=== PATIENT | female | born 1985 | race Caucasian/White ===

== ENCOUNTER 2019-09-18 00:04 | Emergency (ER) | payer OTHER ==
[~2019-09-18] VITALS: Ht 170.2 cm; Wt 73.9 kg
--- NOTE | 2019-09-18 00:26 | NUR ---
PT PRESENTED TO THE ER WITH A C/O MID STERNAL CP, EPISODE OF STREAKS OF BLOOD IN HER STOOL, AND PT APPEARS TO BE ANXIOUS. PT AMBULATED TO THE BATHROOM WITH A STEADY GAIT, BUT WAS UNABLE TO GIVE A URINE SAMPLE AT THIS TIME. PT AMBULATED TO ER 2 WITH A STEADY GAIT AND WAS CONNECTED TO THE MONITOR AND CONTINUOUS PULSE OX.
--- NOTE | 2019-09-18 00:32 | NUR ---
DR FARRAR IS AT THE BEDSIDE.
[2019-09-18] MEDS ORDERED: LORAZEPAM 1 MG TABLET ONE (00:46)
[2019-09-18 00:54] LABS: BASOPHILS # (AUTO) 0.1 /CMM (0.0-0.2); BASOPHILS % (AUTO) 1.4 % (0.0-2.0); EOSINOPHILS % (AUTO) 1.4 % (0.0-6.0); HEMATOCRIT 34 % (33-45); HEMOGLOBIN 11.6 g/dL (11.5-14.8); LYMPHOCYTES # (AUTO) 2.2 /CMM (0.8-4.8); LYMPHOCYTES % (AUTO) 29.5 % (20.0-44.0); MEAN CORPUSCULAR HGB CONC 34 g/dl (31.0-36.0); MEAN CORPUSCULAR VOLUME 90 fL (82-100); MONOCYTES # (AUTO) 0.5 /CMM (0.1-1.30); MONOCYTES % (AUTO) 6.6 % (2.0-12.0); NEUTROPHILS # (AUTO) 4.5 /CMM (1.8-8.9); NEUTROPHILS % (AUTO) 61.1 % (43.0-81.0); PLATELET COUNT (AUTO) 233 /CMM (150-450); RED BLOOD CELL COUNT(AUTO) 3.78 MIL/uL (4.0-5.2); WHITE BLOOD COUNT (AUTO) 7.4 K/uL (4.3-11.0)
[2019-09-18 01:00] LABS: CALCIUM, SERUM 8.9 mg/dL (8.5-10.1); CREATININE 0.8 mg/dL (0.6-1.3); POTASSIUM 3.9 mmol/L (3.5-5.1)
[2019-09-18] MEDS ORDERED: LORAZEPAM 1 MG TABLET PO ONE (01:00)
[2019-09-18] MEDS ORDERED: MAG HYDROX/AL HYDROX/SIMETH 30 ML UDC ONE (01:29)
[2019-09-18] MEDS ORDERED: LIDOCAINE VISCOUS 2% UD 15 ML UDC ONE (01:29)
[2019-09-18] MEDS ORDERED: MAG HYDROX/AL HYDROX/SIMETH 30 ML UDC PO ONE (01:30)
[2019-09-18] MEDS ORDERED: LIDOCAINE VISCOUS 2% UD 15 ML UDC MM ONE (01:30)
--- NOTE | 2019-09-18 01:53 | NUR ---
URINE SAMPLE OBTAINED AND SENT TO LAB.
[2019-09-18 01:56] LABS: APPEARANCE,URINE Clear (CLEAR); BILIRUBIN,URINE Negative (NEGATIVE); BLOOD, URINE Negative Ery/uL (NEGATIVE); COLOR,URINE Yellow (YELLOW); KETONES,URINE Negative (NEGATIVE); LEUKOCYTE ESTERASE ,URINE Negative (NEGATIVE); NITRITE, URINE Negative (NEGATIVE); PROTEIN,URINE Negative (NEGATIVE); UGLUCOSE Negative (NEGATIVE); UROBILINOGEN,URINE 0.2 EU/dL (0.2)
--- NOTE | 2019-09-18 02:05 | NUR ---
Patient discharged to home in stable condition. Written and verbal after care instructions given. Patient verbalizes understanding of instruction AND RX. PT AMBULATED OUT WITH A STEADY GAIT. PT HAD 80Z WATER AND TOLERATED PO WELL. VSS
[2019-09-18 02:49] VITALS: BP 119/85
== END 2019-09-18 02:05 | disposition home or self-care (01) ==
LOC: ER 00:06
DX: F41.9 Anxiety disorder, unspecified (principal); B96.81 Helicobacter pylori [H. pylori] as the cause of diseases classified elsewhere; K29.70 Gastritis, unspecified, without bleeding
CPT/HCPCS: 36415; 80048-TC; 81000-TC; 85025-TC

== ENCOUNTER 2020-01-10 00:37 | Emergency (ER) | payer OTHER ==
[~2020-01-10] VITALS: Ht 170.2 cm; Wt 73.9 kg
--- NOTE | 2020-01-10 00:47 | NUR ---
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
--- NOTE | 2020-01-10 00:50 | NUR ---
PT TINY COYLE
[2020-01-10] MEDS ORDERED: LIDOCAINE VISCOUS 2% UD 15 ML UDC MM ONE (01:00)
[2020-01-10] MEDS ORDERED: FAMOTIDINE/PF INJ 20 MG/2 ML VIAL IV ONE ×2 (01:00→01:05)
[2020-01-10] MEDS ORDERED: ONDANSETRON HCL/PF 4 MG/2 ML VIAL IVP ONE (01:00)
[2020-01-10] MEDS ORDERED: IV NS 0.9% 1,000 ML BAG IV ONE (01:00)
[2020-01-10] MEDS ORDERED: MAG HYDROX/AL HYDROX/SIMETH 30 ML UDC PO ONE (01:00)
[2020-01-10] MEDS ORDERED: LIDOCAINE VISCOUS 2% UD 15 ML UDC ONE (01:04)
[2020-01-10] MEDS ORDERED: MAG HYDROX/AL HYDROX/SIMETH 30 ML UDC ONE (01:04)
[2020-01-10] MEDS ORDERED: ONDANSETRON HCL/PF 4 MG/2 ML VIAL ONE (01:05)
[2020-01-10 01:07] LABS: BASOPHILS # (AUTO) 0.2 /CMM (0.0-0.2); BASOPHILS % (AUTO) 3.8 % (0.0-2.0); EOSINOPHILS % (AUTO) 2.2 % (0.0-6.0); HEMATOCRIT 36 % (33-45); HEMOGLOBIN 12.1 g/dL (11.5-14.8); LYMPHOCYTES # (AUTO) 0.8 /CMM (0.8-4.8); LYMPHOCYTES % (AUTO) 12.3 % (20.0-44.0); MEAN CORPUSCULAR HGB CONC 34 g/dl (31.0-36.0); MEAN CORPUSCULAR VOLUME 90 fL (82-100); MONOCYTES # (AUTO) 0.2 /CMM (0.1-1.30); MONOCYTES % (AUTO) 2.9 % (2.0-12.0); NEUTROPHILS # (AUTO) 5.1 /CMM (1.8-8.9); NEUTROPHILS % (AUTO) 78.8 % (43.0-81.0); PLATELET COUNT (AUTO) 213 /CMM (150-450); RED BLOOD CELL COUNT(AUTO) 4.01 MIL/uL (4.0-5.2); WHITE BLOOD COUNT (AUTO) 6.5 K/uL (4.3-11.0)
[2020-01-10 01:14] LABS: CALCIUM, SERUM 8.7 mg/dL (8.5-10.1); CREATININE 0.7 mg/dL (0.6-1.3); POTASSIUM 3.7 mmol/L (3.5-5.1)
[2020-01-10 01:19] LABS: BILIRUBIN,DIRECT 0.1 mg/dL (0.0-0.2); BILIRUBIN,TOTAL 0.3 mg/dL (0.2-1.0); TOTAL PROTEIN, SERUM 7.4 g/dL (6.4-8.2)
[2020-01-10 01:21] LABS: APPEARANCE,URINE Clear (CLEAR); BILIRUBIN,URINE Negative (NEGATIVE); BLOOD, URINE Negative Ery/uL (NEGATIVE); COLOR,URINE Yellow (YELLOW); KETONES,URINE Negative (NEGATIVE); LEUKOCYTE ESTERASE ,URINE Negative (NEGATIVE); NITRITE, URINE Negative (NEGATIVE); PH,URINE 5.5 (5.0-8.0); PROTEIN,URINE Trace mg/dl (NEGATIVE); UGLUCOSE Negative (NEGATIVE); UROBILINOGEN,URINE 0.2 EU/dL (0.2)
[2020-01-10 01:40] LABS: BACTERIA,URINE Moderate /HPF (None Seen); MUCUS,URINE Few /LPF (None Seen); RBC,URINE 0-2 /HPF (0-2); SQUAMOUS EPITHELIAL CELL,UR Few /HPF (None Seen)
--- NOTE | 2020-01-10 02:48 | NUR ---
PT MEDICALLY STABLE FOR D/C. IV removed. Catheter intact and site benign. Pressure and 4x4 applied to site. No bleeding noted.Patient discharged to home in stable condition. Written and verbal after care instructions given. Patient verbalizes understanding of instruction.
[2020-01-10 02:53] VITALS: BP 110/68
== END 2020-01-10 02:54 | disposition home or self-care (01) ==
LOC: ER 00:38
DX: R10.13 Epigastric pain (principal); R11.2 Nausea with vomiting, unspecified
CPT/HCPCS: 36415; 80048; 80076; 81001; 83690; 84703; 85025; 87086; 96361; 96374; 96375; 99284; J2405; J3490; J7030; 81000-TC

== ENCOUNTER 2021-03-17 07:43 | Emergency (ER) | payer OTHER ==
[~2021-03-17] VITALS: Ht 170.2 cm; Wt 77.1 kg
--- NOTE | 2021-03-17 07:43 | NUR ---
PT BIB SELF C/O NAUSEA/VOMITING AND ABDOMINAL PAIN STARTED 4AM PT ADMITS TO DRINKING ALCOHOL LAST NIGHT. 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 WILL CONTINUE TO MONITOR.
--- NOTE | 2021-03-17 07:50 | NUR ---
PT IV LINE ESTABLISHED BLOOD DRAWN AND SENT TO LAB.
--- NOTE | 2021-03-17 07:55 | NUR ---
AT BEDSIDE FOR EVAL.
[2021-03-17] MEDS ORDERED: ONDANSETRON HCL/PF 4 MG/2 ML VIAL ONE ×2 (07:56→09:28)
[2021-03-17] MEDS ORDERED: PANTOPRAZOLE 40 MG VIAL ONE (07:56)
[2021-03-17] MEDS ORDERED: ONDANSETRON HCL/PF 4 MG/2 ML VIAL IVP ONE (08:00)
[2021-03-17] MEDS ORDERED: PANTOPRAZOLE 40 MG VIAL IV ONE (08:00)
[2021-03-17] MEDS ORDERED: IV NS 0.9% 1,000 ML BAG IV ONE (08:00)
[2021-03-17 08:13] LABS: CALCIUM, SERUM 9.1 mg/dL (8.5-10.1); CREATININE 0.8 mg/dL (0.6-1.3); POTASSIUM 4.1 mmol/L (3.5-5.1)
[2021-03-17 08:19] LABS: ALBUMIN 4.4 g/dL (3.4-5.0); BILIRUBIN,DIRECT 0.1 mg/dL (0.0-0.2); BILIRUBIN,TOTAL 0.5 mg/dL (0.2-1.0)
[2021-03-17 08:21] LABS: BASOPHILS # (AUTO) 0.1 K/uL (0.0-0.2); BASOPHILS % (AUTO) 0.8 % (0.0-2.0); EOSINOPHILS % (AUTO) 0.5 % (0.0-6.0); HEMATOCRIT 38 % (33-45); HEMOGLOBIN 12.6 g/dL (11.5-14.8); LYMPHOCYTES # (AUTO) 1.8 K/uL (0.8-4.8); LYMPHOCYTES % (AUTO) 19.1 % (20.0-44.0); MEAN CORPUSCULAR HGB CONC 34 g/dl (31.0-36.0); MEAN CORPUSCULAR VOLUME 89 fL (82-100); MONOCYTES # (AUTO) 0.3 K/uL (0.1-1.30); MONOCYTES % (AUTO) 2.7 % (2.0-12.0); NEUTROPHILS # (AUTO) 7.2 K/uL (1.8-8.9); NEUTROPHILS % (AUTO) 76.9 % (43.0-81.0); PLATELET COUNT (AUTO) 311 K/uL (150-450); RED BLOOD CELL COUNT(AUTO) 4.22 MIL/uL (4.0-5.2); WHITE BLOOD COUNT (AUTO) 9.3 K/uL (4.3-11.0)
[2021-03-17] MEDS ORDERED: HYDROMORPHONE 1 MG/1 ML DISP.SYRIN ONE (09:00)
[2021-03-17] MEDS ORDERED: HYDROMORPHONE 1 MG/1 ML DISP.SYRIN IV ONE (09:00)
[2021-03-17] MEDS ORDERED: PANT40TA2 PO (09:33)
[2021-03-17] MEDS ORDERED: ONDA4TAB5 PO (09:33)
--- NOTE | 2021-03-17 09:40 | NUR ---
IV removed. Catheter intact and site benign. Pressure and 4x4 applied to site. No bleeding noted. Patient discharged to home in stable condition. Written and verbal after care instructions given. Patient verbalizes understanding of instruction.
[2021-03-17 09:41] VITALS: BP 135/81
[2021-03-17] MEDS ORDERED: ONDANSETRON HCL/PF 4 MG/2 ML VIAL IV ONE (10:00)
== END 2021-03-17 10:08 | disposition home or self-care (01) ==
LOC: ER 07:45
DX: F10.10 Alcohol abuse, uncomplicated (principal); R10.13 Epigastric pain; R11.2 Nausea with vomiting, unspecified; Y90.2 Blood alcohol level of 40-59 mg/100 ml
CPT/HCPCS: 36415; 80048; 80076; 80320; 85025; 96361; 96374; 96375; 96376; 99284; C9113; J1170; J2405 ×2; J7030; G0480

== ENCOUNTER 2023-07-04 16:21 | Emergency (ER) | payer OTHER ==
[~2023-07-04] VITALS: Ht 167.6 cm; Wt 79.4 kg
[~2023-07-04 16:21] MED LIST: ONDA4TAB5 PO; PANT40TA2 PO
[2023-07-04 16:31] VITALS: BP 127/91; TEMP 98.6; O2SAT 100
[2023-07-04] MEDS ORDERED: [UNRECOGNIZED DRUG - CODE] MM (16:54)
[2023-07-04] MEDS ORDERED: AMOX500C2 PO (16:54)
[2023-07-04] MEDS ORDERED: DEXA4TAB PO (16:54)
[2023-07-04] MEDS ORDERED: IBUP-1955 PO (16:54)
[2023-07-04] MEDS ORDERED: ONDA4TAB5 PO (16:58)
[2023-07-04] MEDS ORDERED: dexaMETHasone SOD PHOSPHATE 10 MG/ML VIAL IM ONE (17:00)
== END 2023-07-04 17:18 | disposition home or self-care (01) ==
LOC: ER 16:30
DX: J02.9 Acute pharyngitis, unspecified (principal); Z79.899 Other long term (current) drug therapy
CPT/HCPCS: 99283; 96372; J1100

== ENCOUNTER 2024-05-29 13:26 | Emergency (ER) | payer OTHER ==
[~2024-05-29] VITALS: Ht 167.6 cm; Wt 74.8 kg
[~2024-05-29 13:26] MED LIST changes: +AMOX500C2 PO; +IBUP-1955 PO; +[UNRECOGNIZED DRUG - CODE] MM
[2024-05-29] MEDS ORDERED: OXYM15MI4 NS (14:24)
[2024-05-29 14:35] VITALS: BP 120/72; TEMP 98.2; O2SAT 97
== END 2024-05-29 14:36 | disposition home or self-care (01) ==
LOC: ER 13:34
DX: R09.81 Nasal congestion (principal)